=== PATIENT | female | born 1970 | race Caucasian/White ===

== ENCOUNTER → 2024-03-31 10:37 | Outpatient (CLI) | payer OTHER, SELFPAY ==
--- NOTE | 2024-03-31 10:41 | DI.RAD.S_ITS ---
PROCEDURE: XR CHEST 2V INDICATIONS: SHORTNESS OF BREATH TECHNIQUE: 2 views of the chest were acquired. COMPARISON: None. FINDINGS: Surgical changes and devices: None. Lungs and pleura: Lungs are clear. No pleural effusions or pneumothorax. Mediastinum: Mediastinal contours are normal. Heart size is normal. Bones and chest wall: No suspicious bony abnormalities. Soft tissues appear unremarkable. IMPRESSION: No acute cardiopulmonary abnormality is seen. Approved by: Vince More M.D. on 04/01/2024 at 9:11
--- NOTE | 2024-03-31 11:28 | DI.RAD.S_ITS ---
PROCEDURE: XR KNEE LT 3V INDICATIONS: PAIN TECHNIQUE: 3 views of the knee were acquired. COMPARISON: None. FINDINGS: Bones: No acute fractures or dislocations. No suspicious bony lesions. Minimal early marginal spurring of the patella. Soft tissues: No joint effusion. No suspicious soft tissue calcifications. IMPRESSION: No acute osseous abnormality. If symptoms persist or if there is continued clinical concern, cross-sectional imaging such as MRI may be helpful for further evaluation. Approved by: Vince More M.D. on 04/01/2024 at 9:15
--- NOTE | 2024-03-31 11:29 | DI.RAD.S_ITS ---
PROCEDURE: XR KNEE RT 3V INDICATIONS: PAIN TECHNIQUE: 3 views of the knee were acquired. COMPARISON: None. FINDINGS: Bones: No acute fractures or dislocations. No suspicious bony lesions. Minimal joint space narrowing of the medial femorotibial compartment. Tiny marginal osteophytes at the patella. Soft tissues: No joint effusion. No suspicious soft tissue calcifications. IMPRESSION: No acute osseous abnormality. If symptoms persist or if there is continued clinical concern, cross-sectional imaging such as MRI may be helpful for further evaluation. Approved by: Vince More M.D. on 04/01/2024 at 9:16
[2024-03-31 13:48] LABS: Vitamin D 25 Hydroxy (D3) 22.9 ng/mL (30.0-100.0)
== END ==
PROVIDERS: Referring Provider Chiropractor; Visit Provider Chiropractor
DX: R06.02 Shortness of breath (principal); E55.9 Vitamin D deficiency, unspecified; M13.80 Other specified arthritis, unspecified site
CPT/HCPCS: 36415; 71046; 73562; 82306; 94060